=== PATIENT | male | born 1960 | race Caucasian/White ===

== ENCOUNTER 2017-06-13 12:30 | Emergency (ER) | payer OTHER ==
[~2017-06-13] VITALS: Ht 180.3 cm; Wt 90.0 kg
[2017-06-13] MEDS ORDERED: ATOR20TA86 PO (12:59)
[2017-06-13] MEDS ORDERED: LISI-661 PO (12:59)
[2017-06-13 17:39] LABS: BASOPHILS # (AUTO) 0.04 K/uL (0.00-0.20); BASOPHILS % (AUTO) 0.5 % (0.0-2.0); EOSINOPHILS # (AUTO) 0.08 K/uL (0.00-0.70); EOSINOPHILS % (AUTO) 1.07 % (1.0-6.0); HEMATOCRIT 48.7 % (41-53); HEMOGLOBIN 16.4 g/dL (13.5-17.5); LYMPHOCYTES # (AUTO) 1.7 K/uL (1.0-4.8); LYMPHOCYTES % (AUTO) 22.6 % (22.0-44.0); MEAN CORPUSCULAR HEMOGLOBIN 31.3 pg (26.0-34.0); MEAN CORPUSCULAR HGB CONC 33.7 G/dL (31.0-37.0); MEAN CORPUSCULAR VOLUME 93 fL (80-100); MONOCYTES # (AUTO) 0.5 K/uL (0.1-1.0); MONOCYTES % (AUTO) 6.8 % (2.0-9.0); NEUTROPHILS # (AUTO) 5.2 K/uL (1.8-7.7); PLATELET COUNT (AUTO) 232 K/uL (150-450); RED BLOOD CELL COUNT(AUTO) 5.25 MIL/uL (4.50-5.90); RED CELL DISTRIBUTION WIDTH 12.8 % (11.5-14.5)
[2017-06-13 18:06] LABS: BILIRUBIN,TOTAL 1.2 mg/dL (0.1-1.0)
[2017-06-13 18:06] LABS: AMPHET/METH SCREEN,URINE NEGATIVE (NEGATIVE)
[2017-06-13 18:27] LABS: ANION GAP 11 mmol/L (8-16); CALCIUM, TOTAL 9.1 mg/dL (8.8-10.5); CARBON DIOXIDE 25 mmol/L (22-29); CHLORIDE 101 mmol/L (98-107); CREATININE 0.88 mg/dL (0.60-1.30); GLOMERULAR FILTR. RATE CALC > 60 mL/min (>60); GLUCOSE,RANDOM 101 mg/dL (70-110); SODIUM SERUM 137 mmol/L (136-145); UREA NITROGEN, BLOOD 11 mg/dL (7-18)
[2017-06-13 18:33] LABS: ALANINE AMINOTRANSFERASE 30 U/L (12-78); ALBUMIN 3.9 g/dL (3.4-5.0); ALKALINE PHOSPHATASE 113 U/L (46-116); ASPARTATE AMINOTRANSFERASE 21 U/L (15-37); TOTAL PROTEIN, SERUM 7.6 g/dL (6.4-8.2)
[2017-06-13 18:33] LABS: BARBITURATE SCREEN, URINE NEGATIVE (NEGATIVE); BENZODIAZEPINES SCREEN,URINE NEGATIVE (NEGATIVE); CANNABINOID SCREEN,URINE NEGATIVE (NEGATIVE); COCAINE SCREEN,URINE NEGATIVE (NEGATIVE); METHADONE SCREEN, URINE NEGATIVE (NEGATIVE); OPIATE SCREEN,URINE NEGATIVE (NEGATIVE)
[2017-06-13 18:34] LABS: PHENCYCLIDINE SCREEN,URINE NEGATIVE (NEGATIVE)
[2017-06-13] MEDS ORDERED: LORazepam 1 MG TABLET PO ONE (20:30)
[2017-06-13 23:42] VITALS: BP 129/63
== END 2017-06-14 00:26 | disposition short-term general hospital (02) ==
LOC: EMS 12:41
DX: F32.9 Major depressive disorder, single episode, unspecified (principal); F41.9 Anxiety disorder, unspecified; G47.00 Insomnia, unspecified; Z91.013 Allergy to seafood
CPT/HCPCS: 36415; 80053; 80307; 85025; 99285; G0480

== ENCOUNTER 2017-07-15 11:22 | Inpatient (IN) | payer OTHER ==
[~2017-07-15] VITALS: Ht 180.3 cm; Wt 77.6 kg
[~2017-07-15 11:22] MED LIST: ATOR20TA86 PO; LISI-661 PO
[2017-07-15 15:00] VITALS: BP 121/76
[2017-07-15] MEDS ORDERED: DOCUSATE SODIUM 283 MG/5 ML MINI-ENEMA PR PRN (15:30)
[2017-07-15] MEDS ORDERED: GuaiFENesin [SUGAR-FREE] 200 MG/10 ML SOLUTION UDCUP PO PRN (15:30)
[2017-07-15] MEDS ORDERED: LACTULOSE 20 GM/30 ML SOLUTION UDCUP PO PRN (15:30)
[2017-07-15] MEDS: PROPRANOLOL HCL 10 MG TABLET PO SCH ×2 (16:12→23:33)
[2017-07-15] MEDS: QUEtiapine FUMARATE 25 MG TABLET PO SCH ×2 (16:12→23:33)
[2017-07-15] MEDS: ACETAMINOPHEN 325 MG TABLET PO PRN ×2 (16:12→23:33)
[2017-07-15] MEDS: HEPARIN SODIUM,PORCINE 5,000 UNITS/ML VIAL SQ SCH ×2 (16:12→23:33)
[2017-07-15] MEDS: SODIUM HYPOCHLORITE 0.25% [HALF STRENGTH] 473 ML SOLUTION TP SCH ×2 (17:12→23:46)
[2017-07-15 18:04] LABS: APPEARANCE,URINE CLEAR (CLEAR); BILIRUBIN,URINE NEGATIVE (NEGATIVE); GLUCOSE, URINE (UA) NEGATIVE (NEGATIVE); KETONES,URINE NEGATIVE (NEGATIVE); LEUKOCYTE ESTERASE ,URINE NEGATIVE (NEGATIVE); NITRATE,URINE NEGATIVE (NEGATIVE); OCCULT BLOOD,URINE NEGATIVE (NEGATIVE); PROTEIN,URINE NEGATIVE (NEGATIVE)
[2017-07-15] MEDS: DEXTRAN 70 0.1%/HYPROMELL 0.3% 0.9 ML OPHTHALMIC SOLUTION [PF] OU SCH (20:27)
[2017-07-15] MEDS: SENNA 187 MG TABLET PO SCH (20:27)
[2017-07-15] MEDS: ATORVASTATIN CALCIUM 10 MG TABLET PO SCH (20:27)
[2017-07-15] MEDS: DOCUSATE SODIUM 100 MG CAPSULE PO SCH (20:27)
[2017-07-15 23:33] VITALS: BP 123/78
[2017-07-16] VITALS (7 sets, daily range): BP systolic 93–125; BP diastolic 71–83
[2017-07-16] MEDS: SODIUM HYPOCHLORITE 0.25% [HALF STRENGTH] 473 ML SOLUTION TP SCH ×3 (05:49→17:06)
[2017-07-16 07:10] LABS: BASOPHILS % (AUTO) 0.6 % (0.0-2.0); EOSINOPHILS % (AUTO) 1.2 % (1.0-6.0); HEMOGLOBIN 11.8 g/dL (13.5-17.5); LYMPHOCYTES # (AUTO) 1.6 K/uL (1.0-4.8); LYMPHOCYTES % (AUTO) 23.5 % (22.0-44.0); MEAN CORPUSCULAR HEMOGLOBIN 31.9 pg (26.0-34.0); MEAN CORPUSCULAR HGB CONC 35.7 G/dL (31.0-37.0); MEAN CORPUSCULAR VOLUME 89 fL (80-100); MONOCYTES # (AUTO) 0.5 K/uL (0.1-1.0); MONOCYTES % (AUTO) 7.5 % (2.0-9.0); NEUTROPHILS # (AUTO) 4.5 K/uL (1.8-7.7); NEUTROPHILS % (AUTO) 67.2 % (40.0-70.0); PLATELET COUNT (AUTO) 244 K/uL (150-450); RED CELL DISTRIBUTION WIDTH 12.5 % (11.5-14.5)
[2017-07-16 07:48] LABS: ALANINE AMINOTRANSFERASE 145 U/L (12-78); ALBUMIN 2.1 g/dL (3.4-5.0); ALKALINE PHOSPHATASE 172 U/L (46-116); ANION GAP 8 mmol/L (8-16); ASPARTATE AMINOTRANSFERASE 82 U/L (15-37); BILIRUBIN,TOTAL 0.6 mg/dL (0.1-1.0); CALCIUM, TOTAL 7.9 mg/dL (8.8-10.5); CARBON DIOXIDE 25 mmol/L (22-29); CHLORIDE 100 mmol/L (98-107); CREATININE 0.72 mg/dL (0.60-1.30); GLOMERULAR FILTR. RATE CALC > 60 mL/min (>60); GLUCOSE,RANDOM 92 mg/dL (70-110); POTASSIUM 3.8 mmol/L (3.5-5.1); SODIUM SERUM 133 mmol/L (136-145); TOTAL PROTEIN, SERUM 6.2 g/dL (6.4-8.2); UREA NITROGEN, BLOOD 16 mg/dL (7-18)
[2017-07-16] MEDS: QUEtiapine FUMARATE 25 MG TABLET PO SCH ×3 (08:44→20:12)
[2017-07-16] MEDS: HEPARIN SODIUM,PORCINE 5,000 UNITS/ML VIAL SQ SCH ×3 (08:44→20:12)
[2017-07-16] MEDS: SERTRALINE HCL 50 MG TABLET PO SCH (08:44)
[2017-07-16] MEDS: PROPRANOLOL HCL 10 MG TABLET PO SCH ×3 (08:44→20:12)
[2017-07-16] MEDS: LISINOPRIL 10 MG TABLET PO SCH (08:44)
[2017-07-16] MEDS: DOCUSATE SODIUM 100 MG CAPSULE PO SCH ×2 (08:44→20:12)
[2017-07-16] MEDS: ACETAMINOPHEN 325 MG TABLET PO PRN ×2 (08:58→16:40)
[2017-07-16] MEDS ORDERED: ONDANSETRON HCL 4 MG TABLET PO PRN (09:30)
[2017-07-16] MEDS: ATORVASTATIN CALCIUM 10 MG TABLET PO SCH (20:12)
[2017-07-16] MEDS: SENNA 187 MG TABLET PO SCH (20:12)
[2017-07-16] MEDS: DEXTRAN 70 0.1%/HYPROMELL 0.3% 0.9 ML OPHTHALMIC SOLUTION [PF] OU SCH (20:17)
[2017-07-17 00:13] VITALS: BP 116/70
[2017-07-17] MEDS: ACETAMINOPHEN 325 MG TABLET PO PRN ×4 (03:55→22:06)
[2017-07-17] MEDS: SODIUM HYPOCHLORITE 0.25% [HALF STRENGTH] 473 ML SOLUTION TP SCH ×2 (06:06→19:59)
[2017-07-17 08:00] VITALS: BP 106/71
[2017-07-17] MEDS: QUEtiapine FUMARATE 25 MG TABLET PO SCH (08:33)
[2017-07-17] MEDS: PROPRANOLOL HCL 10 MG TABLET PO SCH ×3 (08:33→21:16)
[2017-07-17] MEDS: DOCUSATE SODIUM 100 MG CAPSULE PO SCH ×2 (08:33→21:16)
[2017-07-17] MEDS: LISINOPRIL 10 MG TABLET PO SCH (08:33)
[2017-07-17] MEDS: SERTRALINE HCL 50 MG TABLET PO SCH (08:33)
[2017-07-17] MEDS: HEPARIN SODIUM,PORCINE 5,000 UNITS/ML VIAL SQ SCH ×3 (08:34→21:16)
[2017-07-17 15:10] VITALS: BP 120/69
[2017-07-17] MEDS ORDERED: SODIUM CHLORIDE 0.9% 500 ML IV ONE (20:15)
[2017-07-17] MEDS: DEXTRAN 70 0.1%/HYPROMELL 0.3% 0.9 ML OPHTHALMIC SOLUTION [PF] OU SCH (21:16)
[2017-07-17] MEDS: SENNA 187 MG TABLET PO SCH (21:16)
[2017-07-17] MEDS: ATORVASTATIN CALCIUM 10 MG TABLET PO SCH (21:16)
[2017-07-17 21:21] VITALS: BP 120/73
[2017-07-17] MEDS ORDERED: SODIUM CHLORIDE 0.9% 500 ML IV SCH (22:30)
[2017-07-17 23:06] VITALS: BP 114/58
[2017-07-18] MEDS: SODIUM HYPOCHLORITE 0.25% [HALF STRENGTH] 473 ML SOLUTION TP SCH ×2 (06:14→17:01)
[2017-07-18 07:42] VITALS: BP 119/76
[2017-07-18 08:53] LABS: ALANINE AMINOTRANSFERASE 226 U/L (12-78); ALBUMIN 2.1 g/dL (3.4-5.0); ALKALINE PHOSPHATASE 177 U/L (46-116); ANION GAP 6 mmol/L (8-16); ASPARTATE AMINOTRANSFERASE 99 U/L (15-37); BILIRUBIN,TOTAL 0.5 mg/dL (0.1-1.0); CALCIUM, TOTAL 7.6 mg/dL (8.8-10.5); CARBON DIOXIDE 25 mmol/L (22-29); CHLORIDE 99 mmol/L (98-107); CREATININE 0.65 mg/dL (0.60-1.30); GLOMERULAR FILTR. RATE CALC > 60 mL/min (>60); GLUCOSE,RANDOM 93 mg/dL (70-110); POTASSIUM 3.7 mmol/L (3.5-5.1); SODIUM SERUM 130 mmol/L (136-145); TOTAL PROTEIN, SERUM 5.8 g/dL (6.4-8.2); UREA NITROGEN, BLOOD 13 mg/dL (7-18)
[2017-07-18] MEDS: PROPRANOLOL HCL 10 MG TABLET PO SCH ×3 (09:25→20:10)
[2017-07-18] MEDS: DOCUSATE SODIUM 100 MG CAPSULE PO SCH ×2 (09:25→20:10)
[2017-07-18] MEDS: HEPARIN SODIUM,PORCINE 5,000 UNITS/ML VIAL SQ SCH ×3 (09:25→20:10)
[2017-07-18] MEDS: SERTRALINE HCL 50 MG TABLET PO SCH (09:25)
[2017-07-18] MEDS: LISINOPRIL 10 MG TABLET PO SCH (09:25)
[2017-07-18] MEDS: ACETAMINOPHEN 325 MG TABLET PO PRN ×2 (09:31→20:11)
[2017-07-18] MEDS: SODIUM CHLORIDE 1 GM TABLET PO SCH ×2 (10:48→20:10)
[2017-07-18 15:31] VITALS: BP 114/75
[2017-07-18] MEDS ORDERED: ZOLPIDEM TARTRATE 5 MG TABLET PO PRN (16:30)
[2017-07-18] MEDS: 0.9% SODIUM CHLORIDE 10 ML SYRINGE IVP SCH ×2 (17:01→23:11)
[2017-07-18 20:06] VITALS: BP 132/76
[2017-07-18] MEDS: DEXTRAN 70 0.1%/HYPROMELL 0.3% 0.9 ML OPHTHALMIC SOLUTION [PF] OU SCH ×2 (20:10→20:31)
[2017-07-18] MEDS: ATORVASTATIN CALCIUM 10 MG TABLET PO SCH (20:10)
[2017-07-18] MEDS: SENNA 187 MG TABLET PO SCH (20:10)
[2017-07-18 23:33] VITALS: BP 114/80
[2017-07-19] MEDS: SODIUM HYPOCHLORITE 0.25% [HALF STRENGTH] 473 ML SOLUTION TP SCH ×2 (06:21→17:12)
[2017-07-19] MEDS: PROPRANOLOL HCL 10 MG TABLET PO SCH ×3 (08:09→20:01)
[2017-07-19] MEDS: DOCUSATE SODIUM 100 MG CAPSULE PO SCH ×2 (08:09→20:01)
[2017-07-19] MEDS: SERTRALINE HCL 50 MG TABLET PO SCH (08:09)
[2017-07-19] MEDS: HEPARIN SODIUM,PORCINE 5,000 UNITS/ML VIAL SQ SCH ×3 (08:09→20:02)
[2017-07-19] MEDS: 0.9% SODIUM CHLORIDE 10 ML SYRINGE IVP SCH ×2 (08:09→16:10)
[2017-07-19] MEDS: SODIUM CHLORIDE 1 GM TABLET PO SCH ×2 (08:09→20:01)
[2017-07-19] MEDS: LISINOPRIL 10 MG TABLET PO SCH (08:09)
[2017-07-19 08:10] VITALS: BP 122/77
[2017-07-19] MEDS: ACETAMINOPHEN 325 MG TABLET PO PRN ×2 (08:10→20:01)
[2017-07-19 15:30] VITALS: BP 110/63
[2017-07-19 19:59] VITALS: BP 119/76
[2017-07-19] MEDS: ATORVASTATIN CALCIUM 10 MG TABLET PO SCH (20:01)
[2017-07-19] MEDS: SENNA 187 MG TABLET PO SCH (20:01)
[2017-07-19] MEDS: DEXTRAN 70 0.1%/HYPROMELL 0.3% 0.9 ML OPHTHALMIC SOLUTION [PF] OU SCH (20:05)
[2017-07-20] MEDS: 0.9% SODIUM CHLORIDE 10 ML SYRINGE IVP SCH
[2017-07-20 05:52] VITALS: BP 127/76
[2017-07-20] MEDS: SODIUM HYPOCHLORITE 0.25% [HALF STRENGTH] 473 ML SOLUTION TP SCH ×2 (06:09→17:00)
[2017-07-20 07:44] VITALS: BP 119/74
[2017-07-20] MEDS: DOCUSATE SODIUM 100 MG CAPSULE PO SCH ×2 (08:10→20:05)
[2017-07-20] MEDS: SODIUM CHLORIDE 1 GM TABLET PO SCH ×2 (08:10→20:05)
[2017-07-20] MEDS: SERTRALINE HCL 50 MG TABLET PO SCH (08:10)
[2017-07-20] MEDS: HEPARIN SODIUM,PORCINE 5,000 UNITS/ML VIAL SQ SCH ×3 (08:11→20:05)
[2017-07-20] MEDS: PROPRANOLOL HCL 10 MG TABLET PO SCH ×3 (08:11→20:05)
[2017-07-20] MEDS: LISINOPRIL 10 MG TABLET PO SCH (08:12)
[2017-07-20 08:19] LABS: ANION GAP 7 mmol/L (8-16); CALCIUM, TOTAL 7.9 mg/dL (8.8-10.5); CARBON DIOXIDE 25 mmol/L (22-29); CHLORIDE 100 mmol/L (98-107); CREATININE 0.66 mg/dL (0.60-1.30); GLOMERULAR FILTR. RATE CALC > 60 mL/min (>60); GLUCOSE,RANDOM 85 mg/dL (70-110); POTASSIUM 3.8 mmol/L (3.5-5.1); SODIUM SERUM 132 mmol/L (136-145); UREA NITROGEN, BLOOD 11 mg/dL (7-18)
[2017-07-20 15:21] VITALS: BP 117/70
[2017-07-20 20:02] VITALS: BP 102/63
[2017-07-20] MEDS: ATORVASTATIN CALCIUM 10 MG TABLET PO SCH (20:05)
[2017-07-20] MEDS: ACETAMINOPHEN 325 MG TABLET PO PRN (20:05)
[2017-07-20] MEDS: SENNA 187 MG TABLET PO SCH (20:05)
[2017-07-20] MEDS: DEXTRAN 70 0.1%/HYPROMELL 0.3% 0.9 ML OPHTHALMIC SOLUTION [PF] OU SCH (20:06)
[2017-07-21] VITALS: BP 114/72
[2017-07-21] MEDS: SODIUM HYPOCHLORITE 0.25% [HALF STRENGTH] 473 ML SOLUTION TP SCH ×2 (06:16→17:01)
[2017-07-21 07:30] VITALS: BP 123/76
[2017-07-21] MEDS: PROPRANOLOL HCL 10 MG TABLET PO SCH ×3 (07:56→20:13)
[2017-07-21] MEDS: LISINOPRIL 10 MG TABLET PO SCH (07:56)
[2017-07-21] MEDS: DOCUSATE SODIUM 100 MG CAPSULE PO SCH ×2 (07:56→20:13)
[2017-07-21] MEDS: SERTRALINE HCL 50 MG TABLET PO SCH (07:56)
[2017-07-21] MEDS: SODIUM CHLORIDE 1 GM TABLET PO SCH ×2 (07:56→20:13)
[2017-07-21] MEDS: HEPARIN SODIUM,PORCINE 5,000 UNITS/ML VIAL SQ SCH ×3 (07:57→20:12)
[2017-07-21 15:31] VITALS: BP 112/77
[2017-07-21 20:11] VITALS: BP 108/65
[2017-07-21] MEDS: ATORVASTATIN CALCIUM 10 MG TABLET PO SCH (20:12)
[2017-07-21] MEDS: DEXTRAN 70 0.1%/HYPROMELL 0.3% 0.9 ML OPHTHALMIC SOLUTION [PF] OU SCH (20:13)
[2017-07-21] MEDS: SENNA 187 MG TABLET PO SCH (20:13)
[2017-07-21] MEDS: ACETAMINOPHEN 325 MG TABLET PO PRN (21:17)
[2017-07-22] VITALS: BP 116/65
[2017-07-22] MEDS: SODIUM HYPOCHLORITE 0.25% [HALF STRENGTH] 473 ML SOLUTION TP SCH ×2 (06:18→17:00)
[2017-07-22 07:30] VITALS: BP 121/69
[2017-07-22] MEDS: SODIUM CHLORIDE 1 GM TABLET PO SCH ×2 (08:53→20:36)
[2017-07-22] MEDS: HEPARIN SODIUM,PORCINE 5,000 UNITS/ML VIAL SQ SCH ×3 (08:53→20:36)
[2017-07-22] MEDS: SERTRALINE HCL 50 MG TABLET PO SCH (08:53)
[2017-07-22] MEDS: LISINOPRIL 10 MG TABLET PO SCH (08:53)
[2017-07-22] MEDS: DOCUSATE SODIUM 100 MG CAPSULE PO SCH ×2 (08:53→20:36)
[2017-07-22] MEDS: PROPRANOLOL HCL 10 MG TABLET PO SCH ×3 (08:53→20:36)
[2017-07-22 11:33] LABS: % IRON SATURATION 42.2 % (30-44)
[2017-07-22] MEDS: FERROUS SULFATE 325 MG EC TABLET PO SCH ×2 (12:42→17:00)
[2017-07-22 15:36] VITALS: BP 111/72
[2017-07-22 20:34] VITALS: BP 119/61
[2017-07-22] MEDS: SENNA 187 MG TABLET PO SCH (20:36)
[2017-07-22] MEDS: DEXTRAN 70 0.1%/HYPROMELL 0.3% 0.9 ML OPHTHALMIC SOLUTION [PF] OU SCH (20:36)
[2017-07-22] MEDS: ATORVASTATIN CALCIUM 10 MG TABLET PO SCH (20:36)
[2017-07-22] MEDS: ACETAMINOPHEN 325 MG TABLET PO PRN (22:15)
[2017-07-22 23:15] VITALS: BP 122/72
[2017-07-23] MEDS: FERROUS SULFATE 325 MG EC TABLET PO SCH ×3 (07:01→17:41)
[2017-07-23 07:03] VITALS: BP 124/76
[2017-07-23 07:11] LABS: BASOPHILS % (AUTO) 1.2 % (0.0-2.0); EOSINOPHILS % (AUTO) 2.3 % (1.0-6.0); HEMATOCRIT 28.7 % (41-53); HEMOGLOBIN 10.6 g/dL (13.5-17.5); LYMPHOCYTES % (AUTO) 31.1 % (22.0-44.0); MEAN CORPUSCULAR HEMOGLOBIN 33.5 pg (26.0-34.0); MEAN CORPUSCULAR HGB CONC 36.8 G/dL (31.0-37.0); MEAN CORPUSCULAR VOLUME 91 fL (80-100); MONOCYTES # (AUTO) 0.5 K/uL (0.1-1.0); MONOCYTES % (AUTO) 8.5 % (2.0-9.0); NEUTROPHILS # (AUTO) 3.6 K/uL (1.8-7.7); NEUTROPHILS % (AUTO) 56.9 % (40.0-70.0); PLATELET COUNT (AUTO) 177 K/uL (150-450); RED BLOOD CELL COUNT(AUTO) 3.15 MIL/uL (4.50-5.90); RED CELL DISTRIBUTION WIDTH 13.8 % (11.5-14.5)
[2017-07-23 07:31] LABS: ALANINE AMINOTRANSFERASE 173 U/L (12-78); ALBUMIN 2.2 g/dL (3.4-5.0); ALKALINE PHOSPHATASE 171 U/L (46-116); ANION GAP 6 mmol/L (8-16); ASPARTATE AMINOTRANSFERASE 46 U/L (15-37); BILIRUBIN,TOTAL 0.5 mg/dL (0.1-1.0); CALCIUM, TOTAL 7.9 mg/dL (8.8-10.5); CARBON DIOXIDE 26 mmol/L (22-29); CHLORIDE 100 mmol/L (98-107); GLOMERULAR FILTR. RATE CALC > 60 mL/min (>60); GLUCOSE,RANDOM 84 mg/dL (70-110); POTASSIUM 3.7 mmol/L (3.5-5.1); SODIUM SERUM 132 mmol/L (136-145); TOTAL PROTEIN, SERUM 5.5 g/dL (6.4-8.2); UREA NITROGEN, BLOOD 13 mg/dL (7-18)
[2017-07-23] MEDS: LISINOPRIL 10 MG TABLET PO SCH (08:48)
[2017-07-23] MEDS: HEPARIN SODIUM,PORCINE 5,000 UNITS/ML VIAL SQ SCH ×3 (08:48→20:16)
[2017-07-23] MEDS: SODIUM CHLORIDE 1 GM TABLET PO SCH ×3 (08:48→20:16)
[2017-07-23] MEDS: SERTRALINE HCL 50 MG TABLET PO SCH (08:48)
[2017-07-23] MEDS: PROPRANOLOL HCL 10 MG TABLET PO SCH ×3 (08:48→20:15)
[2017-07-23] MEDS: DOCUSATE SODIUM 250 MG CAPSULE PO SCH ×2 (08:48→20:15)
[2017-07-23] MEDS: SODIUM HYPOCHLORITE 0.25% [HALF STRENGTH] 473 ML SOLUTION TP SCH ×2 (10:06→19:16)
[2017-07-23 16:07] VITALS: BP 97/70
[2017-07-23] MEDS: DEXTRAN 70 0.1%/HYPROMELL 0.3% 0.9 ML OPHTHALMIC SOLUTION [PF] OU SCH ×2 (20:15→20:23)
[2017-07-23] MEDS: ATORVASTATIN CALCIUM 10 MG TABLET PO SCH (20:15)
[2017-07-23] MEDS: SENNA 187 MG TABLET PO SCH (20:16)
[2017-07-23 21:00] VITALS: BP 115/65
[2017-07-23] MEDS: ACETAMINOPHEN 325 MG TABLET PO PRN (22:25)
[2017-07-23 23:27] VITALS: BP 112/70
[2017-07-24] MEDS: SODIUM HYPOCHLORITE 0.25% [HALF STRENGTH] 473 ML SOLUTION TP SCH ×2 (06:08→20:22)
[2017-07-24 07:15] LABS: ANION GAP 7 mmol/L (8-16); CALCIUM, TOTAL 7.8 mg/dL (8.8-10.5); CARBON DIOXIDE 27 mmol/L (22-29); CHLORIDE 98 mmol/L (98-107); CREATININE 0.58 mg/dL (0.60-1.30); GLOMERULAR FILTR. RATE CALC > 60 mL/min (>60); GLUCOSE,RANDOM 88 mg/dL (70-110); POTASSIUM 3.7 mmol/L (3.5-5.1); SODIUM SERUM 132 mmol/L (136-145); UREA NITROGEN, BLOOD 12 mg/dL (7-18)
[2017-07-24 07:40] VITALS: BP 133/77
[2017-07-24] MEDS: SERTRALINE HCL 50 MG TABLET PO SCH (07:50)
[2017-07-24] MEDS: DOCUSATE SODIUM 250 MG CAPSULE PO SCH ×2 (07:50→20:23)
[2017-07-24] MEDS: SODIUM CHLORIDE 1 GM TABLET PO SCH ×3 (07:50→20:23)
[2017-07-24] MEDS: FERROUS SULFATE 325 MG EC TABLET PO SCH ×3 (07:50→16:22)
[2017-07-24] MEDS: HEPARIN SODIUM,PORCINE 5,000 UNITS/ML VIAL SQ SCH (07:50)
[2017-07-24] MEDS: PROPRANOLOL HCL 10 MG TABLET PO SCH ×3 (07:50→20:23)
[2017-07-24] MEDS: LISINOPRIL 10 MG TABLET PO SCH (07:50)
[2017-07-24 15:42] VITALS: BP 105/69
[2017-07-24] MEDS: DEXTRAN 70 0.1%/HYPROMELL 0.3% 0.9 ML OPHTHALMIC SOLUTION [PF] OU SCH (20:23)
[2017-07-24] MEDS: ATORVASTATIN CALCIUM 10 MG TABLET PO SCH (20:23)
[2017-07-24] MEDS: SENNA 187 MG TABLET PO SCH (20:23)
[2017-07-24 20:24] VITALS: BP 117/64
[2017-07-24 23:11] VITALS: BP 119/71
[2017-07-25] MEDS: SODIUM HYPOCHLORITE 0.25% [HALF STRENGTH] 473 ML SOLUTION TP SCH (06:02)
[2017-07-25 06:54] LABS: ANION GAP 7 mmol/L (8-16); CALCIUM, TOTAL 7.9 mg/dL (8.8-10.5); CARBON DIOXIDE 26 mmol/L (22-29); CHLORIDE 95 mmol/L (98-107); CREATININE 0.63 mg/dL (0.60-1.30); GLOMERULAR FILTR. RATE CALC > 60 mL/min (>60); GLUCOSE,RANDOM 85 mg/dL (70-110); POTASSIUM 3.7 mmol/L (3.5-5.1); SODIUM SERUM 128 mmol/L (136-145); UREA NITROGEN, BLOOD 12 mg/dL (7-18)
[2017-07-25 07:43] VITALS: BP 131/76
[2017-07-25] MEDS: DOCUSATE SODIUM 250 MG CAPSULE PO SCH ×2 (07:56→21:39)
[2017-07-25] MEDS: FERROUS SULFATE 325 MG EC TABLET PO SCH ×3 (07:56→17:25)
[2017-07-25] MEDS: SERTRALINE HCL 50 MG TABLET PO SCH (07:56)
[2017-07-25] MEDS: LISINOPRIL 10 MG TABLET PO SCH (07:56)
[2017-07-25] MEDS: PROPRANOLOL HCL 10 MG TABLET PO SCH ×3 (07:56→21:39)
[2017-07-25] MEDS: SODIUM CHLORIDE 1 GM TABLET PO SCH ×3 (07:56→21:40)
[2017-07-25] MEDS: PANTOPRAZOLE SODIUM 40 MG DR TABLET PO SCH (11:26)
[2017-07-25 15:14] VITALS: BP 108/70
[2017-07-25 16:16] LABS: SODIUM,URINE RANDOM 140 mmol/l (20-110)
[2017-07-25 16:19] LABS: OSMOLALITY,URINE 597 mOS/kg (50-1200)
[2017-07-25] MEDS: DEXTRAN 70 0.1%/HYPROMELL 0.3% 0.9 ML OPHTHALMIC SOLUTION [PF] OU SCH ×2 (21:00→21:39)
[2017-07-25 21:37] VITALS: BP 102/60
[2017-07-25] MEDS: ATORVASTATIN CALCIUM 10 MG TABLET PO SCH (21:39)
[2017-07-25] MEDS: SENNA 187 MG TABLET PO SCH (21:40)
[2017-07-25 23:33] VITALS: BP 112/82
[2017-07-26 07:40] VITALS: BP 123/73
[2017-07-26 07:45] LABS: ANION GAP 7 mmol/L (8-16); CALCIUM, TOTAL 7.8 mg/dL (8.8-10.5); CARBON DIOXIDE 25 mmol/L (22-29); CHLORIDE 100 mmol/L (98-107); CREATININE 0.72 mg/dL (0.60-1.30); GLOMERULAR FILTR. RATE CALC > 60 mL/min (>60); GLUCOSE,RANDOM 94 mg/dL (70-110); POTASSIUM 3.9 mmol/L (3.5-5.1); SODIUM SERUM 132 mmol/L (136-145); UREA NITROGEN, BLOOD 18 mg/dL (7-18)
[2017-07-26] MEDS: SERTRALINE HCL 50 MG TABLET PO SCH (08:33)
[2017-07-26] MEDS: DOCUSATE SODIUM 250 MG CAPSULE PO SCH ×2 (08:33→20:40)
[2017-07-26] MEDS: FERROUS SULFATE 325 MG EC TABLET PO SCH ×3 (08:33→17:55)
[2017-07-26] MEDS: PANTOPRAZOLE SODIUM 40 MG DR TABLET PO SCH (08:33)
[2017-07-26] MEDS: LISINOPRIL 10 MG TABLET PO SCH (08:34)
[2017-07-26] MEDS: SODIUM CHLORIDE 1 GM TABLET PO SCH ×4 (08:34→20:40)
[2017-07-26] MEDS: PROPRANOLOL HCL 10 MG TABLET PO SCH ×3 (08:34→20:40)
[2017-07-26 15:52] VITALS: BP 97/54
[2017-07-26] MEDS: DEXTRAN 70 0.1%/HYPROMELL 0.3% 0.9 ML OPHTHALMIC SOLUTION [PF] OU SCH (20:39)
[2017-07-26 20:40] VITALS: BP 119/77
[2017-07-26] MEDS: SENNA 187 MG TABLET PO SCH (20:40)
[2017-07-26] MEDS: ATORVASTATIN CALCIUM 10 MG TABLET PO SCH (20:40)
[2017-07-26 23:34] VITALS: BP 109/74
[2017-07-27 07:05] LABS: SODIUM SERUM 133 mmol/L (136-145)
[2017-07-27 07:41] VITALS: BP_SYST 130; BP_SYST 142; BP_DIAS 67; BP_DIAS 77
[2017-07-27] MEDS: FERROUS SULFATE 325 MG EC TABLET PO SCH ×3 (07:59→17:19)
[2017-07-27] MEDS: SERTRALINE HCL 50 MG TABLET PO SCH (07:59)
[2017-07-27] MEDS: DOCUSATE SODIUM 250 MG CAPSULE PO SCH ×2 (07:59→20:05)
[2017-07-27] MEDS: SODIUM CHLORIDE 1 GM TABLET PO SCH ×4 (07:59→20:05)
[2017-07-27] MEDS: PROPRANOLOL HCL 10 MG TABLET PO SCH ×3 (07:59→20:05)
[2017-07-27] MEDS: PANTOPRAZOLE SODIUM 40 MG DR TABLET PO SCH (07:59)
[2017-07-27] MEDS: LISINOPRIL 10 MG TABLET PO SCH (07:59)
[2017-07-27 08:25] LABS: OSMOLALITY 274 mOS/kg (270-310)
[2017-07-27 16:10] VITALS: BP 136/74
[2017-07-27 20:04] VITALS: BP 117/73
[2017-07-27] MEDS: SENNA 187 MG TABLET PO SCH (20:05)
[2017-07-27] MEDS: ATORVASTATIN CALCIUM 10 MG TABLET PO SCH (20:05)
[2017-07-27] MEDS: DEXTRAN 70 0.1%/HYPROMELL 0.3% 0.9 ML OPHTHALMIC SOLUTION [PF] OU SCH (20:06)
[2017-07-28 01:13] VITALS: BP 113/68
[2017-07-28 07:20] VITALS: BP 128/76
[2017-07-28] MEDS ORDERED: ROSU20 PO (07:42)
[2017-07-28] MEDS ORDERED: DICL1ADH12 TD (07:42)
[2017-07-28] MEDS ORDERED: DULO20CA30 PO (07:42)
[2017-07-28] MEDS ORDERED: LEVO150 PO (07:42)
[2017-07-28] MEDS ORDERED: GABA-533 PO (07:42)
[2017-07-28] MEDS: DOCUSATE SODIUM 250 MG CAPSULE PO SCH ×2 (08:57→19:58)
[2017-07-28] MEDS: PROPRANOLOL HCL 10 MG TABLET PO SCH ×3 (08:57→19:58)
[2017-07-28] MEDS: PANTOPRAZOLE SODIUM 40 MG DR TABLET PO SCH (08:57)
[2017-07-28] MEDS: SERTRALINE HCL 50 MG TABLET PO SCH (08:57)
[2017-07-28] MEDS: SODIUM CHLORIDE 1 GM TABLET PO SCH ×4 (08:57→19:58)
[2017-07-28] MEDS: FERROUS SULFATE 325 MG EC TABLET PO SCH ×3 (08:57→18:12)
[2017-07-28] MEDS: LISINOPRIL 10 MG TABLET PO SCH (08:57)
[2017-07-28] MEDS: ACETAMINOPHEN 325 MG TABLET PO PRN ×2 (11:00→14:53)
[2017-07-28 16:00] VITALS: BP 147/88
[2017-07-28] MEDS: DEXTRAN 70 0.1%/HYPROMELL 0.3% 0.9 ML OPHTHALMIC SOLUTION [PF] OU SCH ×2 (19:59→20:24)
[2017-07-28] MEDS: SENNA 187 MG TABLET PO SCH (19:59)
[2017-07-28 20:00] VITALS: BP 148/86
[2017-07-29 00:10] VITALS: BP 131/80
[2017-07-29 07:36] LABS: ANION GAP 7 mmol/L (8-16); CALCIUM, TOTAL 8.1 mg/dL (8.8-10.5); CARBON DIOXIDE 27 mmol/L (22-29); CHLORIDE 95 mmol/L (98-107); GLOMERULAR FILTR. RATE CALC > 60 mL/min (>60); GLUCOSE,RANDOM 85 mg/dL (70-110); POTASSIUM 3.5 mmol/L (3.5-5.1); SODIUM SERUM 129 mmol/L (136-145); UREA NITROGEN, BLOOD 12 mg/dL (7-18)
[2017-07-29 07:47] VITALS: BP 114/77
[2017-07-29] MEDS: DOCUSATE SODIUM 250 MG CAPSULE PO SCH ×2 (08:20→20:54)
[2017-07-29] MEDS: FERROUS SULFATE 325 MG EC TABLET PO SCH ×3 (08:20→16:56)
[2017-07-29] MEDS: PROPRANOLOL HCL 10 MG TABLET PO SCH ×3 (08:20→20:54)
[2017-07-29] MEDS: SERTRALINE HCL 50 MG TABLET PO SCH (08:20)
[2017-07-29] MEDS: SODIUM CHLORIDE 1 GM TABLET PO SCH ×4 (08:20→20:54)
[2017-07-29] MEDS: LISINOPRIL 10 MG TABLET PO SCH (08:20)
[2017-07-29] MEDS: PANTOPRAZOLE SODIUM 40 MG DR TABLET PO SCH (08:20)
[2017-07-29] MEDS: ACETAMINOPHEN 325 MG TABLET PO PRN ×2 (09:04→19:06)
[2017-07-29 15:53] VITALS: BP 130/73
[2017-07-29 20:50] VITALS: BP 117/74
[2017-07-29] MEDS: DEXTRAN 70 0.1%/HYPROMELL 0.3% 0.9 ML OPHTHALMIC SOLUTION [PF] OU SCH ×2 (20:53→20:56)
[2017-07-29] MEDS: SENNA 187 MG TABLET PO SCH (20:54)
[2017-07-30 00:38] VITALS: BP 137/81
[2017-07-30 07:20] LABS: BASOPHILS % (AUTO) 0.9 % (0.0-2.0); EOSINOPHILS % (AUTO) 2.5 % (1.0-6.0); HEMATOCRIT 29.8 % (41-53); HEMOGLOBIN 10.7 g/dL (13.5-17.5); LYMPHOCYTES # (AUTO) 2.3 K/uL (1.0-4.8); LYMPHOCYTES % (AUTO) 36.7 % (22.0-44.0); MEAN CORPUSCULAR HEMOGLOBIN 32.9 pg (26.0-34.0); MEAN CORPUSCULAR VOLUME 92 fL (80-100); MONOCYTES # (AUTO) 0.4 K/uL (0.1-1.0); MONOCYTES % (AUTO) 7.2 % (2.0-9.0); NEUTROPHILS # (AUTO) 3.2 K/uL (1.8-7.7); NEUTROPHILS % (AUTO) 52.7 % (40.0-70.0); PLATELET COUNT (AUTO) 201 K/uL (150-450); RED BLOOD CELL COUNT(AUTO) 3.26 MIL/uL (4.50-5.90); RED CELL DISTRIBUTION WIDTH 14.4 % (11.5-14.5)
[2017-07-30 07:33] LABS: ALANINE AMINOTRANSFERASE 98 U/L (12-78); ALBUMIN 2.4 g/dL (3.4-5.0); ALKALINE PHOSPHATASE 150 U/L (46-116); ANION GAP 7 mmol/L (8-16); ASPARTATE AMINOTRANSFERASE 30 U/L (15-37); BILIRUBIN,TOTAL 0.5 mg/dL (0.1-1.0); CARBON DIOXIDE 27 mmol/L (22-29); CHLORIDE 93 mmol/L (98-107); CREATININE 0.61 mg/dL (0.60-1.30); GLOMERULAR FILTR. RATE CALC > 60 mL/min (>60); GLUCOSE,RANDOM 92 mg/dL (70-110); POTASSIUM 3.6 mmol/L (3.5-5.1); SODIUM SERUM 127 mmol/L (136-145); TOTAL PROTEIN, SERUM 5.6 g/dL (6.4-8.2); UREA NITROGEN, BLOOD 10 mg/dL (7-18)
[2017-07-30 07:54] VITALS: BP 143/88
[2017-07-30] MEDS: FERROUS SULFATE 325 MG EC TABLET PO SCH ×3 (07:54→16:23)
[2017-07-30] MEDS: ACETAMINOPHEN 325 MG TABLET PO PRN ×2 (07:54→21:37)
[2017-07-30] MEDS: PANTOPRAZOLE SODIUM 40 MG DR TABLET PO SCH (09:32)
[2017-07-30] MEDS: SERTRALINE HCL 50 MG TABLET PO SCH (09:32)
[2017-07-30] MEDS: PROPRANOLOL HCL 10 MG TABLET PO SCH ×3 (09:32→20:09)
[2017-07-30] MEDS: SODIUM CHLORIDE 1 GM TABLET PO SCH ×4 (09:32→20:09)
[2017-07-30] MEDS: LISINOPRIL 10 MG TABLET PO SCH (09:32)
[2017-07-30] MEDS: DOCUSATE SODIUM 250 MG CAPSULE PO SCH ×2 (09:32→20:09)
[2017-07-30 15:38] VITALS: BP 115/73
[2017-07-30] MEDS: DEXTRAN 70 0.1%/HYPROMELL 0.3% 0.9 ML OPHTHALMIC SOLUTION [PF] OU SCH (20:09)
[2017-07-30] MEDS: SENNA 187 MG TABLET PO SCH (20:09)
[2017-07-30 23:20] VITALS: BP 123/77
[2017-07-31] MEDS: ACETAMINOPHEN 325 MG TABLET PO PRN ×2 (05:17→22:01)
[2017-07-31 07:25] VITALS: BP 119/68
[2017-07-31] MEDS: FERROUS SULFATE 325 MG EC TABLET PO SCH ×3 (07:45→17:44)
[2017-07-31 07:53] LABS: ANION GAP 9 mmol/L (8-16); CALCIUM, TOTAL 8.1 mg/dL (8.8-10.5); CARBON DIOXIDE 25 mmol/L (22-29); CHLORIDE 91 mmol/L (98-107); CREATININE 0.64 mg/dL (0.60-1.30); GLOMERULAR FILTR. RATE CALC > 60 mL/min (>60); GLUCOSE,RANDOM 93 mg/dL (70-110); POTASSIUM 3.7 mmol/L (3.5-5.1); SODIUM SERUM 125 mmol/L (136-145); UREA NITROGEN, BLOOD 10 mg/dL (7-18)
[2017-07-31] MEDS: DOCUSATE SODIUM 250 MG CAPSULE PO SCH ×2 (08:13→20:08)
[2017-07-31] MEDS: SERTRALINE HCL 50 MG TABLET PO SCH (08:13)
[2017-07-31] MEDS: SODIUM CHLORIDE 1 GM TABLET PO SCH ×4 (08:13→20:09)
[2017-07-31] MEDS: PROPRANOLOL HCL 10 MG TABLET PO SCH ×3 (08:13→20:08)
[2017-07-31] MEDS: LISINOPRIL 10 MG TABLET PO SCH (08:13)
[2017-07-31] MEDS: PANTOPRAZOLE SODIUM 40 MG DR TABLET PO SCH (08:13)
[2017-07-31] MEDS ORDERED: NACL1 PO (13:09)
[2017-07-31] MEDS ORDERED: FERR-89 PO (13:09)
[2017-07-31] MEDS ORDERED: SERT50TA12 PO (13:09)
[2017-07-31] MEDS ORDERED: PROP10TA73 PO (13:09)
[2017-07-31] MEDS ORDERED: PANT40TA25 PO (13:09)
[2017-07-31] MEDS ORDERED: ACET-784 PO (13:09)
[2017-07-31] MEDS ORDERED: DEXT1DRO13 OU (13:09)
[2017-07-31] MEDS ORDERED: LISI-661 PO (13:09)
[2017-07-31] MEDS ORDERED: DOCU250C91 PO (13:09)
[2017-07-31 15:17] VITALS: BP 109/69
[2017-07-31 20:00] VITALS: BP 108/59
[2017-07-31] MEDS: SENNA 187 MG TABLET PO SCH (20:08)
[2017-07-31] MEDS: DEXTRAN 70 0.1%/HYPROMELL 0.3% 0.9 ML OPHTHALMIC SOLUTION [PF] OU SCH ×2 (20:09→21:00)
[2017-08-01 00:20] VITALS: BP 110/70
[2017-08-01 07:47] LABS: ANION GAP 7 mmol/L (8-16); CARBON DIOXIDE 26 mmol/L (22-29); CHLORIDE 95 mmol/L (98-107); CREATININE 0.59 mg/dL (0.60-1.30); GLOMERULAR FILTR. RATE CALC > 60 mL/min (>60); GLUCOSE,RANDOM 85 mg/dL (70-110); POTASSIUM 3.6 mmol/L (3.5-5.1); SODIUM SERUM 128 mmol/L (136-145); UREA NITROGEN, BLOOD 12 mg/dL (7-18)
[2017-08-01 07:52] VITALS: BP 118/71
[2017-08-01] MEDS: PANTOPRAZOLE SODIUM 40 MG DR TABLET PO SCH (08:19)
[2017-08-01] MEDS: PROPRANOLOL HCL 10 MG TABLET PO SCH (08:19)
[2017-08-01] MEDS: FERROUS SULFATE 325 MG EC TABLET PO SCH ×2 (08:19→13:31)
[2017-08-01] MEDS: SODIUM CHLORIDE 1 GM TABLET PO SCH ×2 (08:19→13:31)
[2017-08-01] MEDS: SERTRALINE HCL 50 MG TABLET PO SCH (08:19)
[2017-08-01] MEDS: DOCUSATE SODIUM 250 MG CAPSULE PO SCH (08:19)
[2017-08-01] MEDS: LISINOPRIL 10 MG TABLET PO SCH (08:19)
== END 2017-08-01 13:44 | disposition home or self-care (01) | DRG 82 ==
LOC: 2WR 14:47
PROVIDERS: ADMIT Physical Medicine & Rehabilitation; ATTEND Physical Medicine & Rehabilitation
DX: S06.6X9A Traumatic subarachnoid hemorrhage with loss of consciousness of unspecified duration, initial encounter (principal); E43 Unspecified severe protein-calorie malnutrition; S06.5X9A Traumatic subdural hemorrhage with loss of consciousness of unspecified duration, initial encounter; J96.90 Respiratory failure, unspecified, unspecified whether with hypoxia or hypercapnia; N17.9 Acute kidney failure, unspecified; F33.2 Major depressive disorder, recurrent severe without psychotic features; E83.51 Hypocalcemia; M62.82 Rhabdomyolysis; E87.1 Hypo-osmolality and hyponatremia; R45.851 Suicidal ideations; E87.5 Hyperkalemia; S61.511A Laceration without foreign body of right wrist, initial encounter; E87.6 Hypokalemia; R74.0 Nonspecific elevation of levels of transaminase and lactic acid dehydrogenase [LDH]; W19.XXXA Unspecified fall, initial encounter; K59.00 Constipation, unspecified; D64.9 Anemia, unspecified; E78.5 Hyperlipidemia, unspecified; F41.9 Anxiety disorder, unspecified; G44.309 Post-traumatic headache, unspecified, not intractable; E78.00 Pure hypercholesterolemia, unspecified; I10 Essential (primary) hypertension; Z82.49 Family history of ischemic heart disease and other diseases of the circulatory system; Z83.3 Family history of diabetes mellitus; Z87.820 Personal history of traumatic brain injury; Z79.899 Other long term (current) drug therapy; R94.5 Abnormal results of liver function studies; Z68.23 Body mass index [BMI] 23.0-23.9, adult; Z91.013 Allergy to seafood; G47.00 Insomnia, unspecified; S02.402A Zygomatic fracture, unspecified side, initial encounter for closed fracture; X58.XXXA Exposure to other specified factors, initial encounter; Y93.89 Activity, other specified; Y92.89 Other specified places as the place of occurrence of the external cause; Y99.8 Other external cause status
CPT/HCPCS: 76700; 80074; 82533; 82728; 83540; 83550; 83930; 83935; 84295; 84300; 84443; 87081; 92507; 92508; 92523; 97110; 97112; 97116; 97163; 97167; 97530; 97535; 97537; 97760; 99366; J1644; J7030; Q0162